=== PATIENT | male | born 1975 ===

== ENCOUNTER 2017-04-26 10:45 | Emergency (ER) | payer BC ==
[2017-04-26 10:51] VITALS: BMI 31.4
--- NOTE | 2017-04-26 11:13 | ED PDOC ---
Arrival/HPI - General Chief Complaint: Shortness Of Breath Time Seen by Provider: 04/26/17 11:12 Historian: Patient - History of Present Illness Narrative History of Present Illness (Text): 04/26/17 11:13 Satya Patton is a 42 year old male, whose past medical history includes asthma, who presents to the Emergency department complaining of weakness, nausea, vomiting, and diarrhea since last night. Patient informs feeling fine before going to bed but "woke up middle of the night" with the mentioned symptoms. Patient states that he has vomited "6-7 times" and had "6-7 episodes of diarrhea ". Denies recent travel. Denies abdominal pain. States after vomiting he has had some pain to left side when he vomits, also felt as if "asthma was acting up a little". Denies pleuritic pain. Denies hematuria or dysuria or frequency. Denies bloody stool. Denies calf pain or swelling. Time/Duration: 24 hours Symptom Course: Unchanged Activities at Onset: Light Context: Home Past Medical History - Provider Review Nursing Documentation Reviewed: Yes - Infectious Disease Hx of Infectious Diseases: None - Cardiac Hx Cardiac Disorders: No - Pulmonary Hx Asthma: Yes - Neurological Hx Neurological Disorder: No - HEENT Hx HEENT Disorder: No - Renal Hx Renal Disorder: No - Endocrine/Metabolic Hx Endocrine Disorders: No - Hematological/Oncological Hx Blood Disorders: No - Integumentary Hx Dermatological Disorder: No - Musculoskeletal/Rheumatological Hx Back Pain: Yes Hx Falls: No - Gastrointestinal Hx Gastrointestinal Disorders: No - Genitourinary/Gynecological Hx Genitourinary Disorders: No - Psychiatric Hx Psychophysiologic Disorder: No Hx Substance Use: No - Anesthesia Hx Anesthesia: No Hx Anesthesia Reactions: No Hx Malignant Hyperthermia: No - Suicidal Assessment Feels Threatened In Home Enviroment: No Family/Social History - Physician Review Nursing Documentation Reviewed: Yes Family/Social History: Unknown Family HX Smoking Status: Never Smoked Hx Alcohol Use: No Hx Substance Use: No Allergies/Home Meds Allergies/Adverse Reactions: Allergies No Known Allergies Allergy (Verified 04/26/17 12:43) Home Medications: Home Meds Medication Instructions Recorded Confirmed Albuterol HFA 1 inh Q4 PRN 01/24/14 04/26/17 Tiotropium [Spiriva] 18 mcg IH DAILY 04/26/17 04/26/17 Review of Systems - Review of Systems Constitutional: Fevers, Night Sweats Eyes: absent: Vision Changes, Eye Pain ENT: absent: Hearing Changes Respiratory: absent: SOB Cardiovascular: absent: Chest Pain Gastrointestinal: Diarrhea, Nausea, Vomiting, Appetite Changes. absent: Abdominal Pain Genitourinary Male: absent: Dysuria, Frequency Musculoskeletal: Myalgias. absent: Back Pain Skin: absent: Rash Neurological: absent: Headache, Dizziness, Focal Weakness Endocrine: absent: Polyuria Hemo/Lymphatic: absent: Easy Bleeding Physical Exam Vital Signs Reviewed: Yes Vital Signs Temp Pulse Resp BP Pulse Ox 04/26/17 15:16 99.6 F 90 16 108/56 L 97 04/26/17 13:36 100.7 F H 04/26/17 13:17 100.7 F H 103 H 18 108/68 95 04/26/17 11:00 99.7 F H 88 18 108/68 98 Temperature: Afebrile Appearance: Positive for: Uncomfortable Pain Distress: Mild Mental Status: Positive for: Alert and Oriented X 3 - Systems Exam Head: Present: Atraumatic Pupils: Present: PERRL Mouth: Present: Dry Pharnyx: No: ERYTHEMA Nose (External): Present: Atraumatic Nose (Internal): Present: Normal Inspection Neck: Present: Normal Range of Motion. No: Meningeal Signs Respiratory/Chest: Present: Clear to Auscultation. No: Respiratory Distress Cardiovascular: Present: Regular Rate and Rhythm, Murmurs Abdomen: No: Tenderness, Distention, Peritoneal Signs Rectal: No: Gross Blood Upper Extremity: Present: NORMAL PULSES, Neurovascularly Intact. No: Cyanosis, Edema Lower Extremity: Present: NORMAL PULSES, Neurovascularly Intact. No: Edema Neurological: Present: Motor Func Grossly Intact, Normal Sensory Function Skin: Present: Pale Psychiatric: Present: Alert, Normal Insight, Normal Concentration Medical Decision Making ED Course and Treatment: 04/26/17 11:12 Differential Diagnosis included but are not limited to: gastroenteritis vs. food poisoning 04/26/17 12:33 Patient on initial exam with NO abdominal pain on palpation. Appears dehydrated. No fever. No recent travel. Currently no wheezing or respiratory distress. Will iv hydrate patient, perform serial exams. 04/26/17 12:40 Chest X-ray reviewed by radiologist, shows no active disease or processes. 04/26/17 12:58 Patient was re-examined, informs feeling better, nausea has improved, denies shortness of breath, chest pain or any other complaints. Stressed need for immediate follow-up if symptoms persist, or if he develops any abdominal pain. He has no pain on left side on re-exam, has had no vomiting or diarrhea while in ED. Re-evaluation heart rate 90. Family present. Advised re-evaluation for any pain or worsening of any symptoms. Patient observed for multiple hours in ED states symptoms improved. WBC elevated but fever improved and NO abdominal pain. No cough or sob. No rash, no urinary symptoms. Given lack of pain, will d/c with follow-up. - Lab Interpretations Lab Results: 04/26/17 11:20 04/26/17 11:20 Lab Results 04/26/17 11:20: Sodium 141, Potassium 4.3, Chloride 101, Carbon Dioxide 25, Anion Gap 18, BUN 17, Creatinine 1.1, Est GFR ( Amer) > 60, Est GFR (Non- Af Amer) > 60, Random Glucose 122 H, Calcium 9.9, Total Bilirubin 1.2, AST 34, ALT 70 H, Alkaline Phosphatase 65, Lactate Dehydrogenase 592, Total Creatine Kinase 164, Troponin I < 0.01, Total Protein 7.6, Albumin 4.8, Globulin 2.9, Albumin/Globulin Ratio 1.7 04/26/17 11:20: WBC 12.0 H D, RBC 5.52, Hgb 17.0, Hct 49.1, MCV 88.9, MCH 30.8, MCHC 34.6, RDW 13.1, Plt Count 169, MPV 11.7 H, Gran % 89.9 H, Lymph % (Auto) 2.3 L, Cecil % (Auto) 7.6 H, Eos % (Auto) 0.1 L, Baso % (Auto) 0.1, Gran # 10.78 H, Lymph # 0.3 L, Cecil # 0.9 H, Eos # 0.0, Baso # 0.01, Neutrophils % (Manual) 90 H, Lymphocytes % (Manual) 5 L, Atypical Lymphs % 2 H, Monocytes % (Manual) 3 , Platelet Evaluation Normal, Large Platelets Present, Anisocytosis (manual) Slight - RAD Interpretation Radiology Orders: 04/26/17 11:14 CHEST PORTABLE [RAD] Stat - Medication Orders Current Medication Orders: Discontinued Medications Acetaminophen (Tylenol 325mg Tab) 650 mg PO ONCE STA Stop: 04/26/17 13:21 Last Admin: 04/26/17 13:36 Dose: 650 mg MAR Pain/Vitals Document 04/26/17 13:36 OCS (Rec: 04/26/17 13:37 OCS [id number]) Pain Reassessment Is This A Pain ReAssessment? No Sleep Is patient sleeping during reassessment? No Presence of Pain Presence of Pain No Vitals Temperature (97.6 F-99.6 F) 100.7 F Temperature Source Oral Famotidine (Pepcid) 20 mg IVP STAT STA Stop: 04/26/17 11:15 Last Admin: 04/26/17 11:26 Dose: 20 mg IVP Administration Document 04/26/17 11:26 SC (Rec: 04/26/17 11:26 [id number] Charges for Administration # of IVP Administrations 1 Sodium Chloride (Sodium Chloride 0.9%) 1,000 mls @ 1,000 mls/hr IV .Q1H STA Stop: 04/26/17 12:13 Last Admin: 04/26/17 11:19 Dose: 1,000 mls/hr eMAR Start Stop Document 04/26/17 11:19 SC (Rec: 04/26/17 11:19 [id number] Intravenous Solution Start Date 04/26/17 Start Time 11:19 End Date 04/26/17 End time 12:20 Total Infusion Time 61 Sodium Chloride (Sodium Chloride 0.9%) 1,000 mls @ 100 mls/hr IV .Q10H [facility] Last Admin: 04/26/17 13:35 Dose: 100 mls/hr eMAR Start Stop Document 04/26/17 13:35 OCS (Rec: 04/26/17 13:35 OCS [id number]) Intravenous Solution Start Date 04/26/17 Start Time 13:35 Sodium Chloride (Sodium Chloride 0.9%) 500 mls @ 1,000 mls/hr IV .Q30M STA Stop: 04/26/17 14:41 Ondansetron HCl (Zofran Inj) 4 mg IVP ONCE ONE Stop: 04/26/17 11:15 Last Admin: 04/26/17 11:26 Dose: 4 mg IVP Administration Document 04/26/17 11:26 CO (Rec: 04/26/17 11:26 CO [id number]) Charges for Administration # of IVP Administrations 1 - Scribe Statement The provider has reviewed the documentation as recorded by the Scribe Santana Gonzales. All medical record entries made by the Scribe were at my direction and personally dictated by me. I have reviewed the chart and agree that the record accurately reflects my personal performance of the history, physical exam, medical decision making, and the department course for this patient. I have also personally directed, reviewed, and agree with the discharge instructions and disposition. Disposition/Present on Arrival - Present on Arrival Any Indicators Present on Arrival: No History of DVT/PE: No History of Uncontrolled Diabetes: No Urinary Catheter: No History of Decub. Ulcer: No History Surgical Site Infection Following: None - Disposition Have Diagnosis and Disposition been Completed?: Yes Diagnosis: Gastroenteritis Disposition: HOME/ ROUTINE Disposition Time: 15:25 Patient Plan: Discharge Condition: GOOD Discharge Instructions (ExitCare): Gastroenteritis (ED) Additional Instructions: Rest. Slowly advance diet as discussed. For any persistent fevers, any headaches , any cough or shortness of breath, any abdominal pain, any return of nausea/ vomiting, any bloody stool, any persistent or worsening of any symptoms, get rechecked. Follow-up with your physician in 1-2 days. Prescriptions: Ondansetron ODT [Zofran ODT] 4 mg PO Q8 PRN #6 odt PRN Reason: Nausea/Vomiting Referrals: Ghazala Lyle MD [Primary Care Provider] - Follow up with primary Forms: [place]
[2017-04-26] MEDS ORDERED: Sodium Chloride 0.9% 1,000 ML IV STA (11:14)
[2017-04-26 11:37] LABS: BASO # 0.01 K/mm3 (0.0-2.0); BASO % 0.1 % (0.0-3.0); EOS % 0.1 % (1.5-5.0); GRAN # 10.78 (1.4-6.5); GRAN % 89.9 % (50.0-68.0); HEMATOCRIT 49.1 % (42.0-52.0); LYMPH # 0.3 (1.2-3.4); LYMPH % 2.3 % (22.0-35.0); MEAN CELL VOLUME 88.9 fl (80.0-105.0); MEAN CORPUSCULAR HEMOGLOBIN 30.8 pg (25.0-35.0); MEAN CORPUSCULAR HGB CONC 34.6 g/dl (31.0-37.0); MEAN PLATELET VOLUME 11.7 fl (7.0-11.0); MONO # 0.9 (0.1-0.6); MONO % 7.6 % (1.0-6.0); PLATELET COUNT 169 10^3/uL (120.0-450.0); RED CELL DISTRIBUTION WIDTH 13.1 % (11.5-14.5)
[2017-04-26 11:40] LABS: ALB/GLOB RATIO 1.7 (1.1-1.8); ALKALINE PHOSPHATASE 65 U/L (38-126); ALT/SGPT 70 U/L (7-56); AST/SGOT 34 U/L (17-59); BILIRUBIN,TOTAL 1.2 mg/dL (0.2-1.3); BLOOD UREA NITROGEN 17 mg/dL (7-21); CALCIUM 9.9 mg/dL (8.4-10.5); CARBON DIOXIDE 25 mmol/L (21-33); CHLORIDE 101 mmol/L (98-107); GFR AFRICAN-AMERICAN > 60; GLUCOSE,RANDOM 122 mg/dL (70-110); POTASSIUM 4.3 mmol/L (3.6-5.0); SODIUM 141 mmol/L (132-148); TOTAL PROTEIN 7.6 g/dL (5.8-8.3)
--- NOTE | 2017-04-26 11:40 | RAD ---
HISTORY: sob COMPARISON: 05/20/2016 FINDINGS: LUNGS: No active pulmonary disease. PLEURA: No significant pleural effusion identified, no pneumothorax apparent. CARDIOVASCULAR: Normal. OSSEOUS STRUCTURES: No significant abnormalities. VISUALIZED UPPER ABDOMEN: Normal. OTHER FINDINGS: None. IMPRESSION: No active disease.
[2017-04-26 11:52] LABS: TROPONIN I < 0.01 ng/mL
[2017-04-26 12:47] LABS: ANISOCYTOSIS SLIGHT; ATYPICAL LYMPHOCYTE 2 % (0.0-0.0); LARGE PLATELETS PRESENT; NEUTROPHIL 90 % (50.0-70.0); PLATELET ESTIMATE NORMAL (NORMAL)
[2017-04-26] MEDS ORDERED: Sodium Chloride 0.9% 1,000 ML IV SCH (13:30)
[2017-04-26] MEDS ORDERED: Sodium Chloride 0.9% 500 ML IV STA (14:12)
[2017-04-26 15:16] VITALS: BP 108/56; PULSE 90; RESP 16; TEMP 99.6; O2SAT 97
--- NOTE | 2017-04-27 09:10 | CARD ---
APPROVED REPORT EKG Measurement Heart [id number] <Conclusion> Normal sinus rhythm LVH by voltage NSSTW changes, new
== END 2017-04-26 15:38 | disposition home or self-care (01) ==
LOC: ED 10:45
DX: K52.9 Noninfective gastroenteritis and colitis, unspecified (principal)
CPT/HCPCS: 71010; 80053; 82550; 83615; 84484; 85025; 93005; 96361; 96374; 96375; 99285; J2405; J7040